=== PATIENT | male | born 1995 | race Caucasian/White ===

== ENCOUNTER 2022-10-04 11:54 | Outpatient (AMB) | payer OTHER, SELFPAY ==
[2022-10-04 11:59] VITALS: BP 124/82; PULSE 77; O2SAT 93; BMI 30.1
--- NOTE | 2022-10-04 11:59 | MHC.PC.OV ---
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 Allergies No Known Allergies Allergy (Verified 10/04/22 12:01) Medication List - Last Reconciled 10/04/22 by Torsten Flores MD No Known Home Meds Tobacco use date assessed: 10/04/22 Dental Screening Dental Screen Date: 10/04/22 Did you have a dental visit in the last 12 months?: Yes Did you have a dental problem in the last 6 months where you did not have access to dental care?: No Was dental information given to patient?: No 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 Details New Patient Fx of diabetes 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 on , after injury 2015, but never had MRI Bloating off and on with certain food, if avoid those feel better Alcohol screen school 4, patient tells me that he drinks every day and has been drinking since the age of 14 We talked about the toxic effect of alcohol and I would recommend for him to stop drinking Own omeprazole 20 mg daily due to bloating symptoms in June had chest pain , associated with the left arm throbbing , while he was driving never seek any medical attention it got better on its own EKG was done today which is within normal limit acute findings Labs to be done fasting Return after the labs for follow-up Patient is requesting testosterone level added to his labs [facility] Social History Housing: House Patient Tobacco Use Status: Never used Tobacco e-Cigarette/Vaping Use: Currently Using service: No Current occupational status: employed Cognitive needs: No Hearing needs: No Vision needs: No Questionnaire PHQ-9 Over the last 2 weeks, how often have you been bothered by any of the following problems? 1. Little interest or pleasure in doing things: several days 2. Feeling down, depressed, or hopeless: several days 3. Trouble falling or staying asleep, or sleeping too much: nearly every day 4. Feeling tired or having little energy: several days 5. Poor appetite or overeating: several days 6. Feeling bad about yourself - or that you are a failure or have let yourself or your family down: several days 7. Trouble concentrating on things, such as reading the newspaper or watching television: not at all 8. Moving or speaking so slowly that other people could have noticed. Or the opposite - being so fidgety or restless that you have been moving around a lot more than usual: not at all 9. Thoughts that you would be better off or of hurting yourself in some way: not at all Total score: 8 Depression Screening Interpretation: Negative 81230 - PHQ-9 Billing: Yes Source: Developed by Drs. Noah Campbell, Nanci Pollack, Anjum Sam and colleagues, with an educational betsy from [employer]: turn off the lights. Thrive Questionnaire Date Thrive assessed: 10/04/22 I am a: Patient What is your living situation today?: I have a steady place to live Within the past 12 months, did the food you bought not last and you didn't have the money to get more?: Never true Within the past 12 months, did you worry whether your food would run out before you got money to buy more?: Never true Do you have trouble paying for medicines?: No Do you have trouble getting transportation to medical appointments?: No Do you have trouble paying your heating and electricity bill?: No Do you have trouble taking care of your child, family member or friend?: No Do you have trouble with day-to-day activities such as bathing, preparing meals, shopping, managing finances, etc.?: No Are you currently unemployed and looking for a job?: No Are you interested in more education?: No AUDIT C Alcohol Use Questionnaire (AUDIT-C) 1. How often do you have a drink containing alcohol?: 2-3 times a week 2. How many drinks containing alcohol do you have on a typical day when you are drinking?: 3 or 4 3. How often do you have six or more drinks on one occasion?: Never Total Score: 4 Score Reviewed/Action Taken: Yes ROMI-7 AMB Questionnaire ROMI-7 Date ROMI - 7 assessed: 10/04/22 Feeling nervous, anxious, or on edge: 2 = More than half the days Not being able to stop or control worryin = Several days Worrying too much about different things: 2 = More than half the days Trouble relaxin = More than half the days Being so restless that it is hard to sit still: 3 = Nearly every day Becoming easily annoyed or irritable: 2 = More than half the days Feeling afraid as if something awful might happen: 1 = Several days Total ROMI-7 score (0-4 normal; 5-9 mild; 10-14 moderate; 15-21 severe): 13 Source: Developed by Drs. Noah Campbell, Nanci Pollack, Anjum Sam and colleagues, with an educational betsy from [employer]: turn off the lights. ROMI-7 Assessment Billing ROMI-7 Assessment Tool: ROMI-7 Assessment 43682 Review of Systems Const Denies chills, Denies fever(s) and Denies headache(s) Eyes Denies blurry vision ENT Denies headache(s), Denies nasal discharge, Denies nasal obstruction, Denies odynophagia and Denies sinus pain Card Denies chest pain at rest and Denies chest pain with activity Resp Denies cough and Denies hemoptysis GI Denies diarrhea, Denies odynophagia, Denies vomiting and Denies hematemesis Reports as per HPI Musc Denies abnormal gait Skin/Breast Reports as per HPI Neuro Denies Neuro-related abnormal movements, Denies Abnormal speech present, Denies abnormal gait, Denies headache(s) and Denies Sensory deficit (Neuro) Psych Denies mood swings and Denies paranoia Endo Reports as per HPI Antonio/Lymph Reports as per HPI Aller/Immun Reports as per HPI Physical exam (Primary Care) Vital Signs: Last Vital Signs Pulse 77 10/04/22 11:59 BP 124/82 10/04/22 11:59 Pulse Ox 93 10/04/22 11:59 Oxygen Delivery Method Room Air 10/04/22 11:59 BMI result Body Mass Index 30.1 Tobacco/Smoking Status: Tobacco use Status Tobacco use date assessed 10/04/22 10/04/22 12:01 Patient Tobacco Use Status Never used Tobacco 10/04/22 12:01 e-Cigarette/Vaping Use Currently Using 10/04/22 12:01 PHQ-9: PHQ-9 Score PHQ-9: Total score 8 10/04/22 12:39 Depression Screening Interpretation: Negative Thrive Assessment: Date of Thrive Assessment Date Thrive assessed 10/04/22 10/04/22 12:39 Const General: cooperative, comfortable and no acute distress Orientation/consciousness: patient oriented x3 HENMT Head: Yes normocephalic and Yes atraumatic Eyes General: appearance normal, both eyes and all related structures Pupils: Equal, round and reactive pupils present EOM: EOMs intact bilaterally Neck Neck: Yes supple and No lymphadenopathy Thyroid: Thyroid normal Lymphatic: no lymphadenopathy noted Resp Effort & Inspection: normal respiratory effort and able to speak in complete sentences Auscultation: clear to auscultation bilaterally Cardio Heart sounds: S1 normal heart sound present and S2 normal heart sound present GI Palpation (GI): Soft to palpation and nontender Auscultation: normal bowel sounds General: Yes no CVA tenderness Back/Spine/Pelvis Back: no CVA tenderness Skin General skin exam: elasticity normal and turgor normal Neuro General: patient oriented x3 and gait normal Cranial nerves: Yes Equal, round and reactive pupils present Speech: No Abnormal speech present Sensory Exam: No Sensory deficit (Neuro) Coordination: tandem gait normal and Romberg test negative Extrem General: Yes normal exam except as noted and No edema Assessment and Plan Assessment & Plan (1) Encounter for general adult medical examination with abnormal findings: Code(s): Z00.01 - Encounter for general adult medical examination with abnormal findings (2) BMI 30.0-30.9,adult: Code(s): Z68.30 - Body mass index [BMI] 30.0-30.9, adult (3) Bloating: Code(s): R14.0 - Abdominal distension (gaseous) (4) Family history of diabetes mellitus: Code(s): Z83.3 - Family history of diabetes mellitus (5) Alcoholism: Code(s): F10.20 - Alcohol dependence, uncomplicated (6) Chest pain: Code(s): R07.9 - Chest pain, unspecified (7) Lack of libido: Code(s): F52.0 - Hypoactive sexual desire disorder Plan New Patient Fx of diabetes 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 on , after injury 2015, but never had MRI Bloating off and on with certain food, if avoid those feel better Alcohol screen school 4, patient tells me that he drinks every day and has been drinking since the age of 14 We talked about the toxic effect of alcohol and I would recommend for him to stop drinking Own omeprazole 20 mg daily due to bloating symptoms in June had chest pain , associated with the left arm throbbing , while he was driving never seek any medical attention it got better on its own EKG was done today which is within normal limit acute findings Labs to be done fasting Return after the labs for follow-up Patient is requesting testosterone level added to his labs Orders: Orders Comprehensive [place]. Panel Fast Today R14.0 - Abdominal distension (gaseous), Z00.01 - Encounter for general adult medical examination with abnormal findings, Z68.30 - Body mass index [BMI] 30.0-30.9, adult, Z83.3 - Family history of diabetes mellitus Lipid Panel Today R14.0 - Abdominal distension (gaseous), Z00.01 - Encounter for general adult medical examination with abnormal findings, Z68.30 - Body mass index [BMI] 30.0-30.9, adult, Z83.3 - Family history of diabetes mellitus TSH reflex Free T4 Today R14.0 - Abdominal distension (gaseous), Z00.01 - Encounter for general adult medical examination with abnormal findings, Z68.30 - Body mass index [BMI] 30.0-30.9, adult, Z83.3 - Family history of diabetes mellitus Complete Blood Count Auto Diff Today R14.0 - Abdominal distension (gaseous), Z00.01 - Encounter for general adult medical examination with abnormal findings, Z68.30 - Body mass index [BMI] 30.0-30.9, adult, Z83.3 - Family history of diabetes mellitus Testosterone, Total Today F52.0 - Hypoactive sexual desire disorder, Z00.01 - Encounter for general adult medical examination with abnormal findings Vitamin B12 Today F10.20 - Alcohol dependence, uncomplicated AMB EKG-In Office Today R07.9 - Chest pain, unspecified Coding Level of Care Code New Pt Prev Care 18-39yr([id number] Diagnoses Encounter for general adult medical examination with abnormal findings Z00.01 BMI 30.0-30.9,adult Z68.30 Bloating R14.0 Family history of diabetes mellitus Z83.3 Alcoholism F10.20 Chest pain R07.9 Lack of libido F52.0 Additional Codes ROMI-7 Assessment Billing - ROMI-7 Assessment Tool: ROMI-7 Assessment 43354 ([id number])
== END 2022-10-04 12:46 | disposition home or self-care (01) ==
PROVIDERS: PCP Nurse Practitioner Family; Visit Provider Internal Medicine
DX: Z00.01 Encounter for general adult medical examination with abnormal findings (principal); Z68.30 Body mass index [BMI] 30.0-30.9, adult; Z83.3 Family history of diabetes mellitus; F10.20 Alcohol dependence, uncomplicated; F52.0 Hypoactive sexual desire disorder; R14.0 Abdominal distension (gaseous); R07.9 Chest pain, unspecified
CPT/HCPCS: 99385

== ENCOUNTER 2022-10-06 06:10 | Outpatient (REF) | payer OTHER, SELFPAY ==
[2022-10-06 11:33] LABS: MANUAL DIFF FLAG NO
[2022-10-06 11:55] LABS: Basophils Percent Auto 0.8 % (0-2); Eosinophils Absolute Auto 0.2 X10*3/uL (0.0-0.4); Eosinophils Percent Auto 4.2 % (0-4); Hemoglobin 14.7 g/dl (14.0-18.0); Imm Gran Abs Auto 0.02 X10*3/uL (0.00-0.03); Imm Gran Pct Auto 0.4 % (0.0-0.4); Lymphocytes Absolute Auto 1.9 X10*3/uL (1.2-4.9); Lymphocytes Percent Auto 35.4 % (20-40); Mean Corpuscular HGB Conc 35.9 g/dl (31.0-36.0); Mean Corpuscular Hemoglobin 31.7 pg (27.0-33.0); Mean Corpuscular Volume 88.6 fL (80.0-98.0); Monocytes Absolute Auto 0.5 X10*3/uL (0.1-1.2); Monocytes Percent Auto 9.8 % (2-11); Neutrophils Absolute Auto 2.6 x10*3/uL (2.0-8.3); Neutrophils Percent Auto 49.4 % (45-73); Platelet Count 223 X10*3/uL (160-400); Red Blood Count 4.63 X10*6/uL (4.60-5.80); Red Cell Distribution Width 12.2 % (11.0-16.0); White Blood Count 5.3 X10*3/uL (4.8-10.8)
[2022-10-06 12:35] LABS: Alanine Aminotransferase 54 U/L (0-40); Albumin Level 4.5 g/dL (3.5-5.0); Alkaline Phosphatase 63 U/L (39-117); Anion Gap 13 (12-20); Aspartate Amino Transferase 44 U/L (5-37); Bilirubin Total 0.7 mg/dL (0.0-1.0); Blood Urea Nitrogen 15 mg/dL (9-16); Calcium 9.3 mg/dL (8.4-10.2); Carbon Dioxide 24 mmol/L (22-29); Chloride 107 mmol/L (96-108); Cholesterol 209 mg/dL; Estimated Glomerular Filt Rate > 60; Glucose Fasting 111 mg/dL (60-99); HDL Cholesterol 58 mg/dL; LDL Cholesterol Calculated 113 mg/dl; Potassium 3.9 mmol/L (3.3-5.1); Sodium 140 mmol/L (135-145); Total Protein 7.1 g/dL (6.5-8.0); Triglycerides 194 mg/dL
[2022-10-06 12:49] LABS: TSH reflex Free T4 3.63 uIU/mL (0.32-4.0)
[2022-10-06 12:59] LABS: Vitamin B12 580 pg/mL (200-900)
[2022-10-12 12:12] LABS: Testosterone, Total 343 ng/dL (250-1100)
== END 2022-10-06 06:11 | disposition home or self-care (01) ==
LOC: HO.HMGCLDS 06:10
PROVIDERS: PCP Nurse Practitioner Family; Visit Provider Internal Medicine
DX: Z00.01 Encounter for general adult medical examination with abnormal findings (principal); R14.0 Abdominal distension (gaseous); F52.0 Hypoactive sexual desire disorder; F10.20 Alcohol dependence, uncomplicated; Z83.3 Family history of diabetes mellitus
CPT/HCPCS: 36415; 80053; 80061; 82607; 84403; 84443; 85025

== ENCOUNTER 2022-10-18 10:17 | Outpatient (AMB) | payer OTHER, SELFPAY ==
--- NOTE | 2022-10-18 10:18 | A.OFFPC_ITS ---
Vital Signs 10/18/22 10:19 Height 5 ft 5 in Weight 185 lb 6 oz BMI 30.8 BP 148/80 H Blood Pressure Location Lt brachial Position Sitting Pulse 74 Pulse Source Pulse Oximeter Pulse Oximetry (%) 95 Oxygen Delivery Method Room Air Intake Visit Reasons: follow up Allergies No Known Allergies Allergy (Verified 10/18/22 10:18) Medication List - Last Reconciled 10/18/22 by Torsten Flores MD No Known Home Meds Tobacco use date assessed: 10/18/22 Dental Screening Dental Screen Date: 10/18/22 Did you have a dental visit in the last 12 months?: Yes Did you have a dental problem in the last 6 months where you did not have access to dental care?: No Was dental information given to patient?: No HPI follow up HPI Details Patient is 27-year-old gentleman came in today for follow-up appointment and to go over his labs He tells me that he has cut down on his alcohol consumption LFT elevation: Patient's AST and ALT is slightly elevated at 44 and 55, discussed with the patient I would recommend for him to stop drinking altogether. We will continue to monitor. His testosterone level came back at 343 which is low normal, however patient is complaining of feeling tired and lack of libido he is requesting a urology referral. Blood pressure is elevated today it was within normal limit early this month. Patient is pre diabetic with fasting sugar of 111 however his hemoglobin A1c was 5.0 He will repeat labs again in 3 months Follow-up 4 months [facility] Social History Housing: House Patient Tobacco Use Status: Never used Tobacco e-Cigarette/Vaping Use: Currently Using service: No Current occupational status: employed Cognitive needs: No Hearing needs: No Vision needs: No Questionnaire PHQ-9 Over the last 2 weeks, how often have you been bothered by any of the following problems? 1. Little interest or pleasure in doing things: several days 2. Feeling down, depressed, or hopeless: not at all 3. Trouble falling or staying asleep, or sleeping too much: nearly every day 4. Feeling tired or having little energy: more than half the days 5. Poor appetite or overeating: several days 6. Feeling bad about yourself - or that you are a failure or have let yourself or your family down: several days 7. Trouble concentrating on things, such as reading the newspaper or watching television: not at all 8. Moving or speaking so slowly that other people could have noticed. Or the opposite - being so fidgety or restless that you have been moving around a lot more than usual: not at all 9. Thoughts that you would be better off or of hurting yourself in some way: not at all Total score: 8 Depression Screening Interpretation: Negative [id number] - PHQ-9 Billing: Yes Source: Developed by Drs. Noah Campbell, Nanci Pollack, Anjum Sam and colleagues, with an educational betsy from [employer]. Thrive Questionnaire Date Thrive assessed: 10/18/22 I am a: Patient What is your living situation today?: I have a steady place to live Within the past 12 months, did the food you bought not last and you didn't have the money to get more?: Never true Within the past 12 months, did you worry whether your food would run out before you got money to buy more?: Never true Do you have trouble paying for medicines?: No Do you have trouble getting transportation to medical appointments?: No Do you have trouble paying your heating and electricity bill?: No Do you have trouble taking care of your child, family member or friend?: No Do you have trouble with day-to-day activities such as bathing, preparing meals, shopping, managing finances, etc.?: No Are you currently unemployed and looking for a job?: No Are you interested in more education?: No AUDIT C Alcohol Use Questionnaire (AUDIT-C) 1. How often do you have a drink containing alcohol?: Never 3. How often do you have six or more drinks on one occasion?: Never Total Score: 0 Score Reviewed/Action Taken: Yes ROMI-7 AMB Questionnaire ROMI-7 Date ROMI - 7 assessed: 10/18/22 Feeling nervous, anxious, or on edge: 2 = More than half the days Not being able to stop or control worryin = More than half the days Worrying too much about different things: 2 = More than half the days Trouble relaxin = More than half the days Being so restless that it is hard to sit still: 2 = More than half the days Becoming easily annoyed or irritable: 2 = More than half the days Feeling afraid as if something awful might happen: 2 = More than half the days Total ROMI-7 score (0-4 normal; 5-9 mild; 10-14 moderate; 15-21 severe): 14 Source: Developed by Drs. Noah Campbell, Nanci Pollack, Anjum Sam and colleagues, with an educational betsy from [employer]. ROMI-7 Assessment Billing ROMI-7 Assessment Tool: ROMI-7 Assessment 36796 Review of Systems Const Denies chills and Denies fever(s) ENT Denies epistaxis and Denies nasal discharge Card Denies chest pain Resp Denies chest congestion, Denies cough and Denies hemoptysis GI Denies diarrhea and Denies nausea Skin/Breast Denies rash Neuro Reports no additional complaints Psych Reports no additional complaints Endo Reports no additional complaints Physical exam (Primary Care) Vital Signs: Last Vital Signs Pulse 74 10/18/22 10:19 BP 148/80 H 10/18/22 10:19 Pulse Ox 95 10/18/22 10:19 Oxygen Delivery Method Room Air 10/18/22 10:19 BMI result Body Mass Index 30.8 Tobacco/Smoking Status: Tobacco use Status Tobacco use date assessed 10/18/22 10/18/22 10:20 Patient Tobacco Use Status Never used Tobacco 10/18/22 10:20 e-Cigarette/Vaping Use Currently Using 10/18/22 10:20 PHQ-9: PHQ-9 Score PHQ-9: Total score 8 10/18/22 10:48 Depression Screening Interpretation: Negative Thrive Assessment: Date of Thrive Assessment Date Thrive assessed 10/18/22 10/18/22 10:45 Const General: cooperative, comfortable and no acute distress Orientation/consciousness: patient oriented x3 HENMT Head: Yes normocephalic Eyes General: appearance normal, both eyes and all related structures Neck Neck: Yes supple Resp Effort & Inspection: normal respiratory effort, no cough and no stridor Cardio Rhythm: regular rhythm Heart sounds: S1 normal heart sound present and S2 normal heart sound present Skin General skin exam: turgor normal Neuro General: patient oriented x3, tone normal and moves all extremities Extrem Right lower extremity: no edema Left lower extremity: no edema Results AMB Hemoglobin A1c AMB Hemoglobin A1c 5.0 % Last Edit by ELIESER Vargas on 10/18/22 10 :48 Results Reviewed Results Reviewed: Laboratory Last Values Hgb A1c (Clinic) 5.0 % (4.0-6.0) 10/18/22 10:47 Laboratory Tests 10/06/22 10/06/22 06:40 06:40 Fasting Glucose 111 H AST 44 H ALT 54 H LDL Cholesterol, Calc 113 TSH 3.63 Total Testosterone 343 Assessment and Plan Assessment & Plan (1) Impaired fasting blood sugar: Code(s): R73.01 - Impaired fasting glucose (2) LFT elevation: Code(s): R79.89 - Other specified abnormal findings of blood chemistry (3) BMI 30.0-30.9,adult: Code(s): Z68.30 - Body mass index [BMI] 30.0-30.9, adult (4) Lack of libido: Code(s): F52.0 - Hypoactive sexual desire disorder (5) Tired: Code(s): R53.83 - Other fatigue Plan Patient is 27-year-old gentleman came in today for follow-up appointment and to go over his labs He tells me that he has cut down on his alcohol consumption LFT elevation: Patient's AST and ALT is slightly elevated at 44 and 55, discussed with the patient I would recommend for him to stop drinking altogether. We will continue to monitor. His testosterone level came back at 343 which is low normal, however patient is complaining of feeling tired and lack of libido he is requesting a urology referral. Blood pressure is elevated today it was within normal limit early this month. Patient is pre diabetic with fasting sugar of 111 however his hemoglobin A1c was 5.0 He will repeat labs again in 3 months Follow-up 4 months Orders: Orders Comprehensive [place]. Panel Fast 3 Months R73.01 - Impaired fasting glucose, R79.89 - Other specified abnormal findings of blood chemistry, Z68.30 - Body mass index [BMI] 30.0-30.9, adult Hemoglobin A1c 3 Months R73.01 - Impaired fasting glucose, R79.89 - Other specified abnormal findings of blood chemistry, Z68.30 - Body mass index [BMI] 30.0-30.9, adult AMB Hemoglobin A1c Today Z13.9 - Encounter for screening, unspecified Coding Level of Care Code Est Pt Level 4 (97272) Diagnoses Impaired fasting blood sugar R73.01 LFT elevation R79.89 BMI 30.0-30.9,adult Z68.30 Lack of libido F52.0 Tired R53.83 Additional Codes ROMI-7 Assessment Billing - ROMI-7 Assessment Tool: ROMI-7 Assessment 00173 ([id number])
[2022-10-18 10:19] VITALS: BP 148/80; PULSE 74; O2SAT 95; BMI 30.8
== END 2022-10-18 11:03 | disposition home or self-care (01) ==
PROVIDERS: PCP Nurse Practitioner Family; Visit Provider Internal Medicine
DX: R73.01 Impaired fasting glucose (principal); Z68.30 Body mass index [BMI] 30.0-30.9, adult; F52.0 Hypoactive sexual desire disorder; R53.83 Other fatigue
CPT/HCPCS: 83036; 99214

== ENCOUNTER 2022-12-12 11:44 | Outpatient (REF) | payer OTHER, SELFPAY ==
[2022-12-13 07:59] LABS: HIV AB/AG Nonreactive (Nonreactive); HIV Num 1 0.05 S/CO (0.00-0.99)
== END 2022-12-12 11:45 | disposition home or self-care (01) ==
LOC: HO.HMGCLDS 11:44
PROVIDERS: PCP Internal Medicine; Visit Provider Internal Medicine
DX: Z11.4 Encounter for screening for human immunodeficiency virus [HIV] (principal)
CPT/HCPCS: 36415; 87389

== ENCOUNTER 2023-01-04 09:05 | Outpatient (REF) | payer OTHER, SELFPAY ==
[2023-01-04 11:43] LABS: Estimated Average Glucose 82 mg/dL; Hemoglobin A1c % 4.5 % (<6.0)
[2023-01-04 11:52] LABS: Alanine Aminotransferase 76 U/L (0-40); Albumin Level 4.9 g/dL (3.5-5.0); Alkaline Phosphatase 59 U/L (39-117); Anion Gap 15 (12-20); Aspartate Amino Transferase 57 U/L (5-37); Bilirubin Total 0.6 mg/dL (0.0-1.0); Blood Urea Nitrogen 13 mg/dL (9-16); Calcium 9.5 mg/dL (8.4-10.2); Carbon Dioxide 24 mmol/L (22-29); Chloride 108 mmol/L (96-108); Estimated Glomerular Filt Rate > 60; Glucose Fasting 81 mg/dL (60-99); Potassium 4.3 mmol/L (3.3-5.1); Sodium 143 mmol/L (135-145); Total Protein 7.6 g/dL (6.5-8.0)
== END 2023-01-04 09:06 | disposition home or self-care (01) ==
LOC: HO.HMGCLDS 09:05
PROVIDERS: PCP Internal Medicine; Visit Provider Internal Medicine
DX: R79.89 Other specified abnormal findings of blood chemistry (principal); R73.01 Impaired fasting glucose
CPT/HCPCS: 36415; 80053; 83036

== ENCOUNTER 2023-01-04 09:26 | Outpatient (AMB) | payer OTHER, SELFPAY ==
[2023-01-04 09:33] VITALS: BP 140/98; PULSE 79; O2SAT 96; BMI 28.7
--- NOTE | 2023-01-04 09:33 | MHC.PC.OV ---
Vital Signs 01/04/23 09:33 Height 5 ft 5 in Weight 172 lb 8 oz BMI 28.7 BP 140/98 H Blood Pressure Location Rt brachial Position Sitting Pulse 79 Pulse Source Pulse Oximeter Pulse Oximetry (%) 96 Oxygen Delivery Method Room Air Intake Visit Reasons: Therapist Referral-Life Issues Allergies No Known Allergies Allergy (Verified 01/04/23 09:33) Tobacco use date assessed: 01/04/23 Dental Screening Dental Screen Date: 01/04/23 Did you have a dental visit in the last 12 months?: Yes Did you have a dental problem in the last 6 months where you did not have access to dental care?: No Was dental information given to patient?: Patient has dentist HPI Therapist Referral-Life Issues HPI Details Patient is 27-year-old gentlemen who is dealing with lot of stress in his life currently He says that work related stress and also to domestic stress He has 3 children 4-year-old son and 2 daughters [id number] Patient is in a process of getting divorce He is interested in starting therapy and counseling But does not want to take any medications He did some lifestyle changes has lost some weight And stopped drinking alcohol He says that 1 of his friend who knows him well has told him that he is bipolar Because he he has experience with a bipolar sister. Patient himself is not sure about that. He had labs done today to go over his liver enzymes Report is not available at this time He has a follow-up appointment in January. [facility] Social History Housing: House Patient Tobacco Use Status: Never used Tobacco e-Cigarette/Vaping Use: Currently Using service: No Current occupational status: employed Cognitive needs: No Hearing needs: No Vision needs: No Questionnaire PHQ-9 Over the last 2 weeks, how often have you been bothered by any of the following problems? 1. Little interest or pleasure in doing things: several days 2. Feeling down, depressed, or hopeless: several days 3. Trouble falling or staying asleep, or sleeping too much: nearly every day 4. Feeling tired or having little energy: more than half the days 5. Poor appetite or overeating: several days 6. Feeling bad about yourself - or that you are a failure or have let yourself or your family down: more than half the days 7. Trouble concentrating on things, such as reading the newspaper or watching television: more than half the days 8. Moving or speaking so slowly that other people could have noticed. Or the opposite - being so fidgety or restless that you have been moving around a lot more than usual: nearly every day 9. Thoughts that you would be better off or of hurting yourself in some way: not at all Total score: 15 Depression Screening Interpretation: Positive Depression Screening Follow-up: Community Mental Health Worker F/U and Declines treatment Depression Screening Done: Yes 24194 - PHQ-9 Billing: Yes Source: Developed by Drs. Noah Campbell, Nanci Pollack, Anjum Sam and colleagues, with an educational betsy from [employer]. Thrive Questionnaire Date Thrive assessed: 10/18/22 AUDIT C Alcohol Use Questionnaire (AUDIT-C) 1. How often do you have a drink containing alcohol?: Never 3. How often do you have six or more drinks on one occasion?: Never Total Score: 0 Score Reviewed/Action Taken: Yes ROMI-7 AMB Questionnaire ROMI-7 Date ROMI - 7 assessed: 10/18/22 Source: Developed by Drs. Noah Campbell, Nanci Pollack, Anjum Sam and colleagues, with an educational betsy from [employer]. Review of Systems Const Denies chills and Denies fever(s) ENT Denies epistaxis and Denies nasal discharge Card Denies chest pain Resp Denies chest congestion, Denies cough and Denies hemoptysis GI Denies diarrhea and Denies nausea Skin/Breast Denies rash Neuro Reports no additional complaints Psych Reports no additional complaints Endo Reports no additional complaints Physical exam (Primary Care) Vital Signs: Last Vital Signs Pulse 79 01/04/23 09:33 BP 140/98 H 01/04/23 09:33 Pulse Ox 96 01/04/23 09:33 Oxygen Delivery Method Room Air 01/04/23 09:33 BMI result Body Mass Index 28.7 Tobacco/Smoking Status: Tobacco use Status Tobacco use date assessed 01/04/23 01/04/23 09:35 Patient Tobacco Use Status Never used Tobacco 01/04/23 09:35 e-Cigarette/Vaping Use Currently Using 01/04/23 09:35 PHQ-9: PHQ-9 Score PHQ-9: Total score 15 01/04/23 10:12 Depression Screening Interpretation: Positive Depression Screening Follow-up: Community Mental Health Worker F/U and Declines treatment Thrive Assessment: Date of Thrive Assessment Date Thrive assessed 10/18/22 01/04/23 09:35 Const General: cooperative, comfortable and no acute distress Orientation/consciousness: patient oriented x3 HENMT Head: Yes normocephalic Eyes General: appearance normal, both eyes and all related structures Neck Neck: Yes supple Resp Effort & Inspection: normal respiratory effort, no cough and no stridor Skin General skin exam: turgor normal Neuro General: patient oriented x3, tone normal and moves all extremities Extrem Right lower extremity: no edema Left lower extremity: no edema Assessment and Plan Assessment & Plan (1) Depression, major, single episode, moderate: Code(s): F32.1 - Major depressive disorder, single episode, moderate (2) LFT elevation: Code(s): R79.89 - Other specified abnormal findings of blood chemistry Plan Patient is 27-year-old gentlemen who is dealing with lot of stress in his life currently He says that work related stress and also to domestic stress He has 3 children 4-year-old son and 2 daughters [id number] Patient is in a process of getting divorce He is interested in starting therapy and counseling But does not want to take any medications He did some lifestyle changes has lost some weight And stopped drinking alcohol He says that 1 of his friend who knows him well has told him that he is bipolar Because he he has experience with a bipolar sister. Patient himself is not sure about that. He had labs done today to go over his liver enzymes Report is not available at this time He has a follow-up appointment in January. Coding Level of Care Code Est Pt Level 3 (40692) Diagnoses Depression, major, single episode, moderate F32.1 LFT elevation R79.89
== END 2023-01-04 10:44 | disposition home or self-care (01) ==
PROVIDERS: PCP Internal Medicine; Visit Provider Internal Medicine
DX: F32.1 Major depressive disorder, single episode, moderate (principal); R79.89 Other specified abnormal findings of blood chemistry
CPT/HCPCS: 99213

== ENCOUNTER 2023-01-17 12:42 | Outpatient (AMB) | payer OTHER, SELFPAY ==
--- NOTE | 2023-01-17 12:40 | MHC.PC.OV ---
Vital Signs 01/17/23 12:40 Height 5 ft 5 in Intake Visit Reasons: Discuss lab results/[phone] Allergies No Known Allergies Allergy (Verified 01/17/23 12:41) Medication List - Last Reconciled 01/17/23 by Torsten Flores MD No Known Home Meds Tobacco use date assessed: 01/17/23 Dental Screening Dental Screen Date: 01/17/23 Did you have a dental visit in the last 12 months?: Yes Did you have a dental problem in the last 6 months where you did not have access to dental care?: No Was dental information given to patient?: Patient has dentist HPI Discuss lab results/[phone] HPI Details This is a telemedicine conference Patient had labs recently, and wanted to review the reports His liver enzymes has gotten slightly worse than before, even though he has stopped drinking alcohol and has modified his diet Fasting sugar is within normal limit now I have ordered ultrasound of liver to further evaluate. [facility] Housing: House Patient Tobacco Use Status: Never used Tobacco e-Cigarette/Vaping Use: Currently Using service: No Current occupational status: employed Cognitive needs: No Hearing needs: No Vision needs: No Questionnaire Thrive Questionnaire Date Thrive assessed: 10/18/22 AUDIT C Alcohol Use Questionnaire (AUDIT-C) 1. How often do you have a drink containing alcohol?: Never 3. How often do you have six or more drinks on one occasion?: Never Total Score: 0 Score Reviewed/Action Taken: Yes ROMI-7 AMB Questionnaire ROMI-7 Date ROMI - 7 assessed: 10/18/22 Source: Developed by Drs. Noah Campbell, Nanci Pollack, Anjum Sam and colleagues, with an educational betsy from [employer]. Review of Systems Const Denies chills and Denies fever(s) ENT Denies epistaxis and Denies nasal discharge Card Denies chest pain Resp Denies chest congestion, Denies cough and Denies hemoptysis GI Denies diarrhea and Denies nausea Skin/Breast Denies rash Neuro Reports no additional complaints Psych Reports no additional complaints Endo Reports no additional complaints Physical exam (Primary Care) Tobacco/Smoking Status: Tobacco use Status Tobacco use date assessed 01/17/23 01/17/23 12:41 Patient Tobacco Use Status Never used Tobacco 01/17/23 12:40 e-Cigarette/Vaping Use Currently Using 01/17/23 12:40 Thrive Assessment: Date of Thrive Assessment Date Thrive assessed 10/18/22 01/17/23 12:40 Telehealth Telehealth Location of provider rendering services: practice address Location of patient: address on file Patient Identification confirmed using: Name, : Yes Telehealth method: voice only Patient verbally consented to treatment: Yes Patient verbally consented to billing insurance company: Yes Patient informed of any privacy concerns related to visit: Yes Minutes spent on Phone/Video with Pt.: 14 Assessment and Plan Assessment & Plan (1) LFT elevation: Code(s): R79.89 - Other specified abnormal findings of blood chemistry Plan This is a telemedicine conference Patient had labs recently, and wanted to review the reports His liver enzymes has gotten slightly worse than before, even though he has stopped drinking alcohol and has modified his diet Fasting sugar is within normal limit now I have ordered ultrasound of liver to further evaluate. Orders: Orders US abdomen complete Today R79.89 - Other specified abnormal findings of blood chemistry Coding Level of Care Code Tele Est Pt Level 3 (39042) Diagnoses LFT elevation R79.89
== END 2023-01-17 15:25 | disposition home or self-care (01) ==
LOC: HO.HMGC 12:42
PROVIDERS: PCP Internal Medicine; Visit Provider Internal Medicine
DX: R79.89 Other specified abnormal findings of blood chemistry (principal)
CPT/HCPCS: 99213

== ENCOUNTER 2023-02-02 09:04 | Outpatient (REF) | payer OTHER, SELFPAY ==
--- NOTE | ~2023-02-02 | US_ITS ---
EXAMINATION: US ABDOMEN COMPLETE CLINICAL INFORMATION: Other specified abnormal findings of blood chemistry. COMPARISON: None available. TECHNIQUE: Real-time imaging of the abdominal viscera. FINDINGS: PANCREAS: The pancreas appears unremarkable, without masses or ductal dilatation, with the exception of the tail which is obscured by bowel gas. ABDOMINAL AORTA: The proximal, mid, and distal segments are normal in caliber. INFERIOR VENA CAVA: Visualized portions are normal. LIVER: The liver is enlarged measuring at least 18 cm in cephalocaudad dimension. The liver contour is normal. There is diffuse increased liver parenchymal echogenicity, consistent with hepatic steatosis. No focal hepatic lesion. There is no intrahepatic biliary duct dilatation seen. GALLBLADDER: The gallbladder is physiologically distended without evidence of stones, sludge, polyps, wall thickening or pericholecystic fluid. COMMON BILE DUCT: Normal in caliber measuring 0.20 cm in diameter. RIGHT KIDNEY: Normal. No hydronephrosis. No renal calculi or focal parenchymal lesions. The kidney measures 11.0 cm in maximum dimension. LEFT KIDNEY: Normal. No hydronephrosis. No renal calculi or focal parenchymal lesions. The kidney measures 11.6 cm in maximum dimension. SPLEEN: Normal. The spleen measures 12.8 cm in maximum dimension. FREE FLUID: None. US/US abdomen complete IMPRESSION: Enlarged fatty liver.
== END 2023-02-02 09:05 | disposition home or self-care (01) ==
LOC: HO.HMGCX 09:04
PROVIDERS: PCP Internal Medicine; Visit Provider Internal Medicine
DX: R79.89 Other specified abnormal findings of blood chemistry (principal)
CPT/HCPCS: 76700

== ENCOUNTER 2023-03-31 15:23 | Outpatient (AMB) | payer OTHER, SELFPAY ==
[2023-03-31 15:27] VITALS: BP 150/89; PULSE 74; BMI 27.9
--- NOTE | 2023-03-31 15:27 | MHC.OFFVIS ---
Intake Vital Signs 03/31/23 15:27 Height 5 ft 5 in Weight 167 lb 8.821 oz BMI 27.9 BP 150/89 H Blood Pressure Location Lt brachial Position Sitting Pulse 74 Intake Visit Reasons: Fatty Liver Intake Note: Patient presents to in office visit today as a new patient for fatty liver. CC: Patient c/o constipation, diarrhea, a lot of trouble eating lately, and nausea. He states he feels a lot of acid going through his throat. He states it was worst last year around July or September as he was having a lot of abdominal pain. Pt states symptoms come and go. Allergies No Known Allergies Allergy (Verified 03/31/23 15:36) HPI Fatty Liver HPI Details 27-year-old male with no significant past medical history except for ETOH use since age 14 is here today for initial consultation. Patient was send to evaluate his liver. His she of transaminitis in the past. Patient reports postprandial abdominal bloating and epigastric pain. Patient denies any nausea or vomiting. Reports dyspepsia severe burning in the chest after eating and at night time. Patient states that it feels like the acid is going up his throat. Patient reports to have occasional loose stools then constipation. Patient denies any melena, hematochezia, unintentional weight loss or ribbon like stools. Patient reports that he drinks hard liquor every day. [facility] Family History (Updated 03/31/23 @ 15:38 by ELIESER Pacheco) Maternal Grandmother Brain neoplasm malignant Mother H/O thyroidectomy Social History Housing: House Alcohol intake: current Alcohol intake frequency: 3 or more drinks per day Alcohol type: hard liquor Patient Tobacco Use Status: Never used Tobacco e-Cigarette/Vaping Use: Former Use service: No Current occupational status: employed Cognitive needs: No Hearing needs: No Vision needs: No Review of Systems Const Denies weight gain and Denies weight loss ENT Reports no additional complaints, Denies dysphagia and Denies odynophagia Card Reports no additional complaints Resp Reports no additional complaints GI Reports abdominal pain (Epigastric), Denies belching, Denies melena, Reports bloating, Reports constipation, Denies dysphagia, Denies excessive flatus, Reports dyspepsia, Reports heartburn, Denies diarrhea, Reports loose stools, Reports nausea (Occasional), Denies odynophagia and Denies vomiting Reports no additional complaints Musc Reports no additional complaints Neuro Reports no additional complaints Psych Reports no additional complaints Endo Reports no additional complaints Physical Exam Vital Signs: Last Vital Signs Pulse 74 03/31/23 15:27 BP 150/89 H 03/31/23 15:27 BMI result Body Mass Index 27.9 Const General: healthy appearing, no acute distress and well developed Nutritional Appearance: well nourished Orientation/consciousness: patient oriented x3 Resp Effort & Inspection: normal respiratory effort, able to speak in complete sentences, no tracheal deviation and symmetric chest movement Auscultation: clear to auscultation bilaterally Cardio Rate: regular rate GI Inspection: Yes normal to inspection and No distended Palpation (GI): Soft to palpation, not firm, nontender and No hepatosplenomegaly present Auscultation: normal bowel sounds General: Yes no CVA tenderness Back/Spine/Pelvis Back: no CVA tenderness Skin General skin exam: elasticity normal, turgor normal and dry skin Neuro General: patient oriented x3 Psych Appearance: grossly normal Mental Status: mental status grossly normal Results Reviewed Results Reviewed: ABDOMINAL ULTRASOUND JANUARY 2023 FINDINGS: PANCREAS: The pancreas appears unremarkable, without masses or ductal dilatation, with the exception of the tail which is obscured by bowel gas. ABDOMINAL AORTA: The proximal, mid, and distal segments are normal in caliber. INFERIOR VENA CAVA: Visualized portions are normal. LIVER: The liver is enlarged measuring at least 18 cm in cephalocaudad dimension. The liver contour is normal. There is diffuse increased liver parenchymal echogenicity, consistent with hepatic steatosis. No focal hepatic lesion. There is no intrahepatic biliary duct dilatation seen. GALLBLADDER: The gallbladder is physiologically distended without evidence of stones, sludge, polyps, wall thickening or pericholecystic fluid. COMMON BILE DUCT: Normal in caliber measuring 0.20 cm in diameter. RIGHT KIDNEY: Normal. No hydronephrosis. No renal calculi or focal parenchymal lesions. The kidney measures 11.0 cm in maximum dimension. LEFT KIDNEY: Normal. No hydronephrosis. No renal calculi or focal parenchymal lesions. The kidney measures 11.6 cm in maximum dimension. SPLEEN: Normal. The spleen measures 12.8 cm in maximum dimension. FREE FLUID: None. US/US abdomen complete IMPRESSION: Enlarged fatty liver. Assessment & Plan Assessment & Plan (1) Fatty liver: Code(s): K76.0 - Fatty (change of) liver, not elsewhere classified (2) LFT elevation: Code(s): R79.89 - Other specified abnormal findings of blood chemistry (3) Alcoholism: Code(s): F10.20 - Alcohol dependence, uncomplicated (4) Bloating: Code(s): R14.0 - Abdominal distension (gaseous) (5) GERD (gastroesophageal reflux disease): Code(s): K21.9 - Gastro-esophageal reflux disease without esophagitis Qualifiers: Esophagitis presence: esophagitis presence not specified Qualified Code(s): K21.9 - Gastro-esophageal reflux disease without esophagitis (6) Postprandial epigastric pain: Code(s): R10.13 - Epigastric pain (7) Dyspepsia: Code(s): R10.13 - Epigastric pain Plan Will check for celiac, patient can start taking pantoprazole in the morning and famotidine at bedtime. Avoid dietary triggers and avoid drinking alcohol. Most likely transaminitis related to alcohol. Ultrasound done in January showed increased hepatic echogenicity suggesting steatosis most likely alcoholic. However we will rule out autoimmune disorders. Will check transglutaminase to rule out celiac, H pylori pancreatic insufficiency, IBD. Patient will return in 5 weeks, sooner on as needed basis. Patient is agreeable to this plan and verbalizes understanding of instructions. He was given the opportunity to ask questions and all questions answered. Thank you for allowing me to participate in his care Orders: Orders Hepatitis A,B,C Profile 04/03/23 R7.89 - Other specified abnormal findings of blood chemistry HIV Ab/Ag 04/03/23 R7.89 - Other specified abnormal findings of blood chemistry Prothrombin Time INR 04/03/23 R74.8 - Abnormal levels of other serum enzymes C Reactive Protein 04/03/23 K58.9 - Irritable bowel syndrome without diarrhea Smooth Muscle Antibody 04/03/23 R7.89 - Other specified abnormal findings of blood chemistry Transglutaminase Ab IgG 04/03/23 R10.9 - Unspecified abdominal pain Mitochondrial Antibody 04/03/23 R7.89 - Other specified abnormal findings of blood chemistry Ferritin 04/03/23 R74.8 - Abnormal levels of other serum enzymes H Pylori Breath Test 03/31/23 Liver Fibrosis Pnl 04/03/23 R74.8 - Abnormal levels of other serum enzymes Ceruloplasmin 04/03/23 R79.89 - Other specified abnormal findings of blood chemistry Alpha Fetoprotein 04/03/23 R79.89 - Other specified abnormal findings of blood chemistry Transglutaminase IgA 04/03/23 R10.9 - Unspecified abdominal pain Vitamin D 25-OH (D2 and D3) 04/03/23 E55.9 - Vitamin D deficiency, unspecified Vitamin B12 and Folate 04/03/23 R19.7 - Diarrhea, unspecified TSH reflex Free T4 04/03/23 K59.00 - Constipation, unspecified Gamma Glutamyl Transpeptidase 04/03/23 R74.8 - Abnormal levels of other serum enzymes Pancreatic Elastase-1 03/31/23 R10.9 - Unspecified abdominal pain Calprotectin, Fecal 03/31/23 R15.9 - Full incontinence of feces Medications: New famotidine 40 mg PO BEDTIME 30 tabs 3RF K21.9 - Gastro-esophageal reflux disease without esophagitis pantoprazole take one tablet half an hour before breakfast 40 mg PO DAILY 30 tabs 2RF K21.9 - Gastro-esophageal reflux disease without esophagitis Coding Level of Care Code New Pt Level 4 (45698) Diagnoses Fatty liver K76.0 LFT elevation R79.89 Alcoholism F10.20 Bloating R14.0 Gastroesophageal reflux disease, unspecified whether esophagitis present K21.9 Esophagitis presence: esophagitis presence not specified Postprandial epigastric pain R10.13 Dyspepsia R10.13 Time Spent (min) 45 Comment 30 minutes spent with patient and additional 15 minutes spent reviewing his records
== END 2023-03-31 16:26 | disposition home or self-care (01) ==
PROVIDERS: PCP Internal Medicine; Visit Provider Nurse Practitioner Family
DX: K76.0 Fatty (change of) liver, not elsewhere classified (principal); R79.89 Other specified abnormal findings of blood chemistry; F10.20 Alcohol dependence, uncomplicated; R14.0 Abdominal distension (gaseous); K21.9 Gastro-esophageal reflux disease without esophagitis; R10.13 Epigastric pain
CPT/HCPCS: 99204

== ENCOUNTER 2023-03-31 15:23 | Outpatient (REF) | payer OTHER, SELFPAY ==
[2023-04-01 13:31] LABS: H Pylori Breath Test Negative (Negative)
== END 2023-03-31 15:24 | disposition home or self-care (01) ==
LOC: HO.LNP 15:23
PROVIDERS: PCP Internal Medicine; Visit Provider Nurse Practitioner Family
DX: Z11.2 Encounter for screening for other bacterial diseases (principal)
CPT/HCPCS: 83013; 99202

== ENCOUNTER 2023-04-03 09:32 | Outpatient (REF) | payer OTHER, SELFPAY ==
[2023-04-03 13:35] LABS: INTERNATIONAL NORM RATIO 0.9 (0.9-1.1); Prothrombin Time 10.8 SEC (11.1-13.3)
[2023-04-03 13:57] LABS: C Reactive Protein 0.11 mg/dL (< or = 0.50)
[2023-04-03 14:17] LABS: Folate 14.4 ng/mL (> or = 4.0); Vitamin B12 959 pg/mL (200-900)
[2023-04-03 14:22] LABS: Ferritin 510 ng/mL (20-250); Gamma Glutamyl Transpeptidase 133 U/L (11-51); TSH reflex Free T4 1.36 uIU/mL (0.32-4.0)
[2023-04-04 07:55] LABS: HBS Num1 5.76 mIU/mL (0-7.99); HBc Num1 0.29 S/CO (0.00-0.79); HIV AB/AG Nonreactive (Nonreactive); HIV Num 1 0.05 S/CO (0.00-0.99); Hepatitis A Antibody IgM 0.17 Index (0-0.79); Hepatitis B Core Antibody Nonreactive (Nonreactive); Hepatitis B Surface Antigen Negative (Negative); ~HepC Num1 0.08 S/CO (0.00-0.79); ~Hepatitis A Antibody IgM Nonreactive (Nonreactive); ~Hepatitis B Surface Antibody NONREACTIVE (Nonreactive); ~Hepatitis C Antibody Nonreactive (Nonreactive)
[2023-04-04 13:54] LABS: Alpha Fetoprotein 2.5 ng/mL (<6.1)
[2023-04-04 15:33] LABS: Ceruloplasmin 26 mg/dL (18-36)
[2023-04-04 19:49] LABS: Transglutaminase Ab IgG <1.0 U/mL; Transglutaminase IgA <1.0 U/mL
[2023-04-07 13:18] LABS: Smooth Muscle Antibody <20 U (<20)
[2023-04-07 14:53] LABS: FIB-ALT 49 U/L (9-46); FIB-Alpha-2-Macroglobulin 133 mg/dL (106-279); FIB-Apolipoprotein A1 168 mg/dL (94-176); FIB-GGT 102 U/L (3-70); FIB-Haptoglobin 147 mg/dL (43-212); FIB-Total Bilirubin 0.5 mg/dL (0.2-1.2); Liver Fibrosis Score 0.08; Liver Fibrosis Stage F0; Nec Inflam Act Grade A0-A1; Nec Inflam Act Score 0.22
[2023-04-07 15:28] LABS: Vitamin D 25-OH, D2 <4 ng/mL; Vitamin D 25-OH, D3 36 ng/mL; Vitamin D 25-OH, Total 36 ng/mL (30-100)
[2023-04-07 15:34] LABS: Mitochondrial Antibodies NEGATIVE (NEGATIVE)
== END 2023-04-03 09:33 | disposition home or self-care (01) ==
LOC: HO.HMGCLDS 09:32
PROVIDERS: PCP Internal Medicine; Visit Provider Nurse Practitioner Family
DX: E55.9 Vitamin D deficiency, unspecified (principal); R10.9 Unspecified abdominal pain; R79.89 Other specified abnormal findings of blood chemistry; R74.8 Abnormal levels of other serum enzymes; K58.1 Irritable bowel syndrome with constipation; K58.0 Irritable bowel syndrome with diarrhea
CPT/HCPCS: 36415; 81596; 82105; 82306; 82390; 82607; 82728; 82746; 82977; 84443; 85610; 86015; 86140; 86364; 86381; 86704; 86706; 86709; 86803; 87340; 87389

== ENCOUNTER 2023-05-02 12:00 | Outpatient (REF) | payer OTHER, SELFPAY ==
[2023-05-10 02:45] LABS: Calprotectin, Fecal 22 mcg/g
[2023-05-15 23:09] LABS: Pancreatic Elastase-1 >500 mcg/g
== END 2023-05-02 12:01 | disposition home or self-care (01) ==
LOC: HO.HMGCLNP 12:00
PROVIDERS: PCP Internal Medicine; Visit Provider Nurse Practitioner Family
DX: R10.9 Unspecified abdominal pain (principal); R15.9 Full incontinence of feces
CPT/HCPCS: 82656; 83993

== ENCOUNTER 2023-10-16 13:26 | Outpatient (AMB) | payer OTHER, SELFPAY ==
--- NOTE | 2023-10-16 13:40 | A.OFFVIS_ITS ---
Vital Signs 10/16/23 13:41 Height 5 ft 5 in Weight 173 lb 11.588 oz BMI 28.9 BP 138/84 Blood Pressure Location Rt brachial Position Sitting Pulse 80 Pulse Source Pulse Oximeter Pulse Oximetry (%) 96 Oxygen Delivery Method Room Air Intake Visit Reasons: 5 week follow up Pt N/S last appt Intake Note: Isaac presents in office today for a scheduled FUV. CC; Pt did miss their last appointment (unplanned). Pt reports that overall they have been greatly improved since their last visit. Pt believes that largely their sx may have been circumstantial. Pt has not taken the Rx'd medications as instructed as he did not feel that they were necessary. Pt does have requests regarding dietary suggestion lists. Pt did misplace their last copy. Pt would also like to address possible follow up blood / lab work. 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 Will check vitamin-D B12 and folate levels. Patient will try to avoid dietary triggers and late night snacking. Discussed with patient the importance of controlling his blood sugars as they can contribute to multiple other issues that include gastroparesis, as well as cardiac issues. Patient will start omeprazole in the morning half an hour before breakfast. Avoid dietary triggers and late night snacking. Staying upright for minimum 3 hours after meals discussed with patient. Patient will return in the office in 2 months, sooner on as needed basis. He is agreeable to this plan and verbalizes understanding of instructions. He was given the opportunity to ask questions and all questions answered. ? Thank you for allowing me to participate in his care Orders Orders Carbohydrate Antigen 19-9 08/10/23 D49.0 Vitamin D 25-OH (D2 and D3) 08/10/23 E55.9 Carcinoembryonic Antigen 08/10/23 D49.0 Lipase 08/10/23 R10.9 Transglutaminase Ab IgG 08/10/23 R10.9 Transglutaminase IgA 08/10/23 R10.9 Vitamin B12 and Folate 08/10/23 R19.7 Medications New omeprazole 20 mg PO DAILY 30 caps 3RF K21.9 TODAY'S VISIT Patient is here today for follow-up and to discuss lab results. Patient reports that he has been feeling better. Patient states that he eliminated stress and lots of food, change his diet and stopped drinking alcohol. His symptoms got much better. Lab results discussed with patient. Patient states that he took omeprazole only for 3 days, he has not seen any difference and he stopped. Patient did follow low FODMAP diet. Patient denies any dyspepsia, dysphagia or odynophagia. Denies melena, hematochezia, unintentional weight loss or ribbon like stools. Patient reports that he retired from [employer] today and will be going into [employer]. PFSH Family History Maternal Grandmother Brain neoplasm malignant Mother H/O thyroidectomy Social History Housing: House Alcohol intake: current Alcohol intake frequency: 3 or more drinks per day Alcohol type: hard liquor Patient Tobacco Use Status: Never used Tobacco e-Cigarette/Vaping Use: Former Use service: No Current occupational status: employed Cognitive needs: No Hearing needs: No Vision needs: No Review of Systems Const Denies weight gain and Denies weight loss ENT Reports no additional complaints, Denies dysphagia and Denies odynophagia Card Reports no additional complaints Resp Reports no additional complaints GI Denies abdominal pain, Denies belching, Denies melena, Denies bloating, Denies change in bowel habits, Denies dysphagia, Denies excessive flatus, Denies dysp epsia, Denies heartburn, Denies diarrhea, Denies loose stools, Denies nausea, Denies odynophagia and Denies vomiting Reports no additional complaints Musc Reports no additional complaints Neuro Reports no additional complaints Psych Reports no additional complaints Endo Reports no additional complaints Physical Exam Vital Signs: Last Vital Signs Pulse 80 10/16/23 13:41 BP 138/84 10/16/23 13:41 Pulse Ox 96 10/16/23 13:41 Oxygen Delivery Method Room Air 10/16/23 13:41 BMI result Body Mass Index 28.9 Const General: healthy appearing, no acute distress and well developed Nutritional Appearance: well nourished Orientation/consciousness: patient oriented x3 Resp Effort & Inspection: normal respiratory effort, able to speak in complete sentences, no tracheal deviation and symmetric chest movement Auscultation: clear to auscultation bilaterally Cardio Rate: regular rate GI Inspection: Yes normal to inspection and No distended Palpation (GI): Soft to palpation, not firm, nontender and No hepatosplenomegaly present Auscultation: normal bowel sounds General: Yes no CVA tenderness Back/Spine/Pelvis Back: no CVA tenderness Skin General skin exam: elasticity normal, turgor normal and dry skin Neuro General: patient oriented x3 Psych Appearance: grossly normal Mental Status: mental status grossly normal Results Reviewed Results Reviewed: Laboratory Tests 03/31/23 04/03/23 05/02/23 16:24 10:41 12:00 Ferritin 510 H GGT 133 H Liver GGT 102 H Liver Fibrosis ALT 49 H Liver Fibrosis Stage F0 C-Reactive Protein 0.11 Ceruloplasmin 26 Alpha Fetoprotein 2.5 25-OH Vitamin D Total 36 Folate 14.4 Stool Calprotectin 22 Stool Pancreat Elastase >500 Anti-Mitochondrial Ab NEGATIVE Anti-Smooth Muscle Ab <20 Tiss Transglutamin IgG <1.0 Tiss Transglutamin IgA <1.0 H. pylori Breath Test Negative Hepatitis A IgM Ab Nonreactive Hep Bs Antigen Negative Hep Bs Antibody NONREACTIVE Hep B Core Total Ab Nonreactive Hepatitis C Ab (EIA) Nonreactive HIV 1&2 Ab/P24 Ag 4thGn Nonreactive Assessment & Plan Assessment & Plan (1) Fatty liver: Code(s): K76.0 - Fatty (change of) liver, not elsewhere classified Category: Medical (2) LFT elevation: Code(s): R79.89 - Other specified abnormal findings of blood chemistry Category: Medical (3) Bloating: Code(s): R14.0 - Abdominal distension (gaseous) Category: Medical (4) GERD (gastroesophageal reflux disease): Code(s): K21.9 - Gastro-esophageal reflux disease without esophagitis Qualifiers: Esophagitis presence: esophagitis presence not specified Qualified Code(s): K21.9 - Gastro-esophageal reflux disease without esophagitis (5) Postprandial epigastric pain: Code(s): R10.13 - Epigastric pain Plan Patient reports that he is feeling much better now. Will repeat liver panel, ferritin and iron profile. Will recheck ultrasound with elastography. Liver fibrosis panel staging F0. Patient will follow-up on as needed basis. If liver panel still high and liver elastography increased patient will return in 6 months otherwise as needed. Patient is agreeable to this plan and verbalizes understanding of instructions. He was given opportunity to ask questions and all questions answered. Thank you for allowing me to participate in his care Orders: Orders Ferritin Today R74.8 - Abnormal levels of other serum enzymes Liver Panel Today R74.01 - Elevation of levels of liver transaminase levels IRON PROFILE Today D64.9 - Anemia, unspecified US abdomen gama w elastography Today K76.0 - Fatty (change of) liver, not elsewhere classified Coding Level of Care Code Est Pt Level 4 (46130) Diagnoses Fatty liver K76.0 LFT elevation R79.89 Bloating R14.0 Gastroesophageal reflux disease, unspecified whether esophagitis present K21.9 Esophagitis presence: esophagitis presence not specified Postprandial epigastric pain R10.13 Time Spent (min) 35 Comment 30 minutes spent with patient and additional 15 minutes spent reviewing his records
[2023-10-16 13:41] VITALS: BP 138/84; PULSE 80; O2SAT 96; BMI 28.9
== END 2023-10-16 14:43 | disposition home or self-care (01) ==
PROVIDERS: PCP Internal Medicine; Visit Provider Nurse Practitioner Family
DX: K76.0 Fatty (change of) liver, not elsewhere classified (principal); R79.89 Other specified abnormal findings of blood chemistry; R14.0 Abdominal distension (gaseous); K21.9 Gastro-esophageal reflux disease without esophagitis; R10.13 Epigastric pain
CPT/HCPCS: 99214

== ENCOUNTER 2023-10-16 13:26 | Outpatient (REF) | payer OTHER, SELFPAY ==
[2023-10-16 15:21] LABS: Alanine Aminotransferase 61 U/L (0-40); Albumin Level 4.5 g/dL (3.5-5.0); Alkaline Phosphatase 74 U/L (39-117); Aspartate Amino Transferase 82 U/L (5-37); Bilirubin Direct 0.2 mg/dL (0.0-0.5); Bilirubin Total 0.8 mg/dL (0.0-1.0); Iron 216 mcg/dL (45-160); Percent Iron Saturation 67 % (15-50); Total Iron Binding Capacity 321 mcg/dL (228-428); Total Protein 7.1 g/dL (6.5-8.0); Unsaturated Iron Binding 105 ug/dL
[2023-10-16 15:39] LABS: Ferritin 597 ng/mL (20-250)
== END 2023-10-16 13:27 | disposition home or self-care (01) ==
LOC: HO.LAB 13:26
PROVIDERS: PCP Internal Medicine; Visit Provider Nurse Practitioner Family
DX: R79.89 Other specified abnormal findings of blood chemistry (principal); R74.8 Abnormal levels of other serum enzymes; R74.01 Elevation of levels of liver transaminase levels; D64.9 Anemia, unspecified; K76.0 Fatty (change of) liver, not elsewhere classified; R14.0 Abdominal distension (gaseous); K21.9 Gastro-esophageal reflux disease without esophagitis
CPT/HCPCS: 36415; 80076; 81256; 82728; 83540; 99212

== ENCOUNTER 2024-07-26 08:19 | Outpatient (AMB) | payer OTHER, SELFPAY ==
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
== END 2024-07-26 09:15 | disposition home or self-care (01) ==
LOC: HO.HMCC 08:19
PROVIDERS: PCP Internal Medicine; Visit Provider Internal Medicine
DX: J32.9 Chronic sinusitis, unspecified (principal)

== ENCOUNTER → 2024-07-26 08:19 | Outpatient (BNVA) | payer OTHER, SELFPAY | PROVIDERS: PCP Internal Medicine; Visit Provider Internal Medicine ==

== ENCOUNTER 2024-12-06 15:13 | Outpatient (AMB) | payer OTHER, SELFPAY ==
--- NOTE | 2024-12-06 15:21 | A.OFFPC_ITS ---
Vital Signs 12/06/24 15:22 Height 5 ft 5 in Weight 181 lb BMI 30.1 BP 144/90 H Blood Pressure Location Lt brachial Position Sitting Pulse 83 Pulse Source Pulse Oximeter Pulse Oximetry (%) 98 Intake Visit Reasons: Back pain Allergies No Known Allergies Allergy (Verified 12/06/24 15:22) Medication List - Last Reconciled 12/06/24 by Torsten Flores MD multivitamin 1 tab PO DAILY Tobacco use date assessed: 12/06/24 Dental Screening Dental Screen Date: 12/06/24 Did you have a dental visit in the last 12 months?: Yes Did you have a dental problem in the last 6 months where you did not have access to dental care?: No Was dental information given to patient?: Patient has dentist HPI Back pain HPI Details History The patient is a 29-year-old male presenting with chronic lower back pain and concerns of possible ADHD. Lower Back Pain: - The patient reports experiencing lower back pain since an injury in 2018 during a deadlifting exercise. - at first when it happened ,associated symptoms included episodes of severe pain leading to crying, collapse, or a pinching sensation in the back. - but now after several years the pain i s characterized by a feeling of soreness and worsens without regular stretching, warm-ups, massages, and decompression exercises.. - Recent exacerbation occurred approxima tely five weeks ago while carrying his son, leading to whiplash-like symptoms for three and a half weeks. - Pain occasionally radiates, resulting in limping and stiffness, particularly if not maintaining regular stretching and other physical therapies. - No regular medication use for pain man agement is reported. Possible ADHD: - The patient describes a longstanding h istory of behavior and concentration difficulties, including scatterbrained episodes and delayed task completion. - Symptoms have been particularly noted by close friends, family, and coworkers over several years. - Recent increase in work-related tasks requiring concentration has highlighted these issues. - He reports having tried Adderall infor amado, which resulted in improved focus and task management. - The patient?s boss has expressed sol rns about his scatterbrained behavior and difficulty in work task completion. - He has experienced multiple severe bauer ic attacks over the last few months alongside difficulties with concentration and overthinking leading to sleeplessness. Medical History: - Elevated blood pressure readings noted in past visits in September and currently. - elevated Ferritin and one gene + for H emochromotosis Medications: - The patient is not on any regular medi cations for back pain or other chronic issues. 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 - Exercise: Regular engagement in stretc ange, physical exercises like decompression, and massages. - Nutritional intake: High salt intake i s acknowledged. - Family status: Has a son Problem List - Chronic Lower Back Pain - Possible Attention Deficit Hyperactivi ty Disorder (ADHD) - Elevated Blood Pressure, that need fur ther monitoring - elevated Ferritin level, need repeated labs Diagnostic results - X-ray of the back recommended and pend ing results. - Labs including liver function tests pl anned for evaluation. [facility] Care - Our Behavioral coordinator will magalys t with ADD evaluation and testing. Plan - Order x-ray imaging of the lumbar spin e to assess any structural abnormalities. This is recommended as the first step in evaluation, considering the chronic nature and recent exacerbation of the patient's back pain. - Referral to a specialist for comprehen sive back and spine evaluation due to chronic symptoms and complex mechanisms potentially involved. - Begin evaluation for ADHD with appropr iate psychiatric or psychological testing through referral to a specialist. Diagnosis to guide further management and prescription considerations. - Dietary modification advised, specific ally reduction of salt intake to address elevated blood pressure. Continuous monitoring of blood pressure is recommended before considering pharmacotherapy. - Repeat blood tests for liver enzyme st atus evaluation due to previous elevation. Continue monitoring and compare results with past records. - Schedule a follow-up for a complete ph ysical examination, inclusive of blood pressure re-evaluation and discussion on test results. Review of Systems General: No fever no chills neurological: No headaches no dizziness ear nose throat: No sore throat no hearing difficulty no ear pain cardiovascular: No syncope, no chest pain, no palpitations gastrointestinal: No nausea vomiting or diarrhea endocrine: No polyuria polydipsia no heat intolerance genitourinary: No dysuria skin: No new complaints Physical Exam general: No acute distress HEENT: No acute findings neck: Supple respiratory system: Able to talk in full sentences, no audible wheeze no stridor cardiovascular: S1-S2 RRR, blood pressure 144/90 gastrointestinal: No pain Back : no pain with percussion, full ROM intact without pain, st leg neg extremities: No new findings 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 awake oriented x3 motor sensory intact skin: Normal turgor PFSH Surgical History No pertinent past surgical history Family History Maternal Grandmother Brain neoplasm malignant Mother H/O thyroidectomy Social History Housing: House Alcohol intake: current Alcohol intake frequency: 3 or more drinks per day Alcohol type: hard liquor Patient Tobacco Use Status: Never used Tobacco e-Cigarette/Vaping Use: Former Use service: No Current occupational status: employed Cognitive needs: No Hearing needs: No Vision needs: No Questionnaire PHQ-9 Over the last 2 weeks, how often have you been bothered by any of the following problems? 1. Little interest or pleasure in doing things: several days 2. Feeling down, depressed, or hopeless: several days 3. Trouble falling or staying asleep, or sleeping too much: several days 4. Feeling tired or having little energy: several days 5. Poor appetite or overeating: not at all 6. Feeling bad about yourself - or that you are a failure or have let yourself or your family down: not at all 7. Trouble concentrating on things, such as reading the newspaper or watching television: more than half the days 8. Moving or speaking so slowly that other people could have noticed. Or the opposite - being so fidgety or restless that you have been moving around a lot more than usual: not at all 9. Thoughts that you would be better off or of hurting yourself in some way: not at all Total score: 6 Depression Screening Interpretation: Negative Depression Screening Done: Yes 22953 - PHQ-9 Billing: Yes Source: Developed by Drs. Noah Campbell, Nanci Pollack, Anjum Sam and colleagues, with an educational betsy from [employer]. Thrive Questionnaire Date Thrive assessed: 12/06/24 I am a: Patient What is your living situation today?: I have a steady place to live Within the past 12 months, did the food you bought not last and you didn't have the money to get more?: Never true Within the past 12 months, did you worry whether your food would run out before you got money to buy more?: Never true Do you have trouble paying for medicines?: No Do you have trouble getting transportation to medical appointments?: No Do you have trouble paying your heating and electricity bill?: No Do you have trouble taking care of your child, family member or friend?: No Do you have trouble with day-to-day activities such as bathing, preparing meals, shopping, managing finances, etc.?: No Are you currently unemployed and looking for a job?: No Are you interested in more education?: No Please select the resources that you would like help with: None Currently or been in a relationship where the following occur: No concerns reported THRIVE Score: 0 AUDIT C Alcohol Use Questionnaire (AUDIT-C) 1. How often do you have a drink containing alcohol?: 2-3 times a week 2. How many drinks containing alcohol do you have on a typical day when you are drinking?: 3 or 4 3. How often do you have six or more drinks on one occasion?: Less than monthly Total Score: 5 Score Reviewed/Action Taken: Yes ROMI-7 AMB Questionnaire ROMI-7 Date ROMI - 7 assessed: 12/06/24 Feeling nervous, anxious, or on edge: 2 = More than half the days Not being able to stop or control worryin = More than half the days Worrying too much about different things: 1 = Several days Trouble relaxin = More than half the days Being so restless that it is hard to sit still: 2 = More than half the days Becoming easily annoyed or irritable: 1 = Several days Feeling afraid as if something awful might happen: 1 = Several days Total ROMI-7 score (0-4 normal; 5-9 mild; 10-14 moderate; 15-21 severe): 11 Source: Developed by Drs. Noah Campbell, Nanci Pollack, Anjum Sam and colleagues, with an educational betsy from [employer]. ROMI-7 Assessment Billing ROMI-7 Assessment Tool: ROMI-7 Assessment 30131 Physical exam (Primary Care) Vital Signs: Last Vital Signs Pulse 83 12/06/24 15:22 BP 144/90 H 12/06/24 15:22 Pulse Ox 98 12/06/24 15:22 BMI result Body Mass Index 30.1 Tobacco/Smoking Status: Tobacco use Status Tobacco use date assessed 12/06/24 12/06/24 15:25 Patient Tobacco Use Status Never used Tobacco 12/06/24 15:25 e-Cigarette/Vaping Use Former Use 12/06/24 15:25 PHQ-9: PHQ-9 Score PHQ-9: Total score 6 12/06/24 15:47 Depression Screening Interpretation: Negative Thrive Assessment: Date of Thrive Assessment Date Thrive assessed 12/06/24 12/06/24 15:25 Currently or been in a relationship where the following occur: No concerns reported Coding Level of Care Code Est Pt Level 5 (74001) Diagnoses Elevated blood pressure reading R03.0 Concentration deficit R41.840 Anxiety disorder with panic attacks F41.9 Chronic bilateral low back pain without sciatica M54.50; G89.29 Back pain laterality: bilateral Sciatica presence: without sciatica LFT elevation R79.89 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 Elevated ferritin R79.89 Enlarged liver R16.0 Impaired fasting blood sugar R73.01 Additional Codes ROMI-7 Assessment Billing - ROMI-7 Assessment Tool: ROMI-7 Assessment 78055 ([id number]) PHQ-9 - 56090 - PHQ-9 Billing: Yes ([id number]) Time Spent (min) 40 Comment reviewing chart/labs/gastro notes/face to face/coordination of care Assessment & Plan Assessment & Plan (1) Elevated blood pressure reading: Code(s): R03.0 - Elevated blood-pressure reading, without diagnosis of hypertension Category: Medical (2) Concentration deficit: Code(s): R41.840 - Attention and concentration deficit Category: Medical (3) Anxiety disorder with panic attacks: Code(s): F41.9 - Anxiety disorder, unspecified Category: Medical (4) Chronic lumbar pain: Code(s): M54.50 - Low back pain, unspecified; G89.29 - Other chronic pain Category: Medical Qualifiers: Back pain laterality: bilateral Sciatica presence: without sciatica Qualified Code(s): M54.50 - Low back pain, unspecified; G89.29 - Other chronic pain (5) LFT elevation: Code(s): R79.89 - Other specified abnormal findings of blood chemistry Category: Medical (6) Hemochromatosis associated with compound heterozygous mutation in HFE gene: Code(s): E83.110 - Hereditary hemochromatosis Category: Medical (7) Elevated ferritin: Code(s): R79.89 - Other specified abnormal findings of blood chemistry Category: Medical (8) Enlarged liver: Code(s): R16.0 - Hepatomegaly, not elsewhere classified Category: Medical (9) Impaired fasting blood sugar: Code(s): R73.01 - Impaired fasting glucose Category: Medical Plan History The patient is a 29-year-old male presenting with chronic lower back pain and concerns of possible ADHD. Lower Back Pain: - The patient reports experiencing lower back pain since an injury in 2018 during a deadlifting exercise. - at first when it happened ,associated symptoms included episodes of severe pain leading to crying, collapse, or a pinching sensation in the back. - but now after several years the pain is characterized by a feeling of soreness and worsens without regular stretching, warm-ups, massages, and decompression exercises.. - Recent exacerbation occurred approximately five weeks ago while carrying his son, leading to whiplash-like symptoms for three and a half weeks. - Pain occasionally radiates, resulting in limping and stiffness, particularly if not maintaining regular stretching and other physical therapies. - No regular medication use for pain management is reported. Possible ADHD: - The patient describes a longstanding history of behavior and concentration difficulties, including scatterbrained episodes and delayed task completion. - Symptoms have been particularly noted by close friends, family, and coworkers over several years. - Recent increase in work-related tasks requiring concentration has highlighted these issues. - He reports having tried Adderall informally, which resulted in improved focus and task management. - The patient?s boss has expressed concerns about his scatterbrained behavior an d difficulty in work task completion. - He has experienced multiple severe panic attacks over the last few months alongside difficulties with concentration and overthinking leading to sleeplessness. Medical History: - Elevated blood pressure readings noted in past visits in September and currently. - elevated Ferritin and one gene + for Hemochromotosis Medications: - The patient is not on any regular medications for back pain or other chronic issues. 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 - Exercise: Regular engagement in stretching, physical exercises like decompression, and massages. - Nutritional intake: High salt intake is acknowledged. - Family status: Has a son Problem List - Chronic Lower Back Pain - Possible Attention Deficit Hyperactivity Disorder (ADHD) - Elevated Blood Pressure, that need further monitoring - elevated Ferritin level, need repeated labs, he had US abd in 2022, which showed enlarged liver Diagnostic results - X-ray of the back recommended and pending results. - Labs including liver function tests planned for evaluation. [facility] Care - Our Behavioral coordinator will assist with ADD evaluation and testing. Plan - Order x-ray imaging of the lumbar spine to assess any structural abnormalities. This is recommended as the first step in evaluation, considering the chronic nature and recent exacerbation of the patient's back pain. - Referral to a specialist for comprehensive back and spine evaluation due to chronic symptoms and complex mechanisms potentially involved. - Begin evaluation for ADHD with appropriate psychiatric or psychological testing through referral to a specialist. Diagnosis to guide further management and prescription considerations. - Dietary modification advised, specifically reduction of salt intake to address elevated blood pressure. Continuous monitoring of blood pressure is recommended before considering pharmacotherapy. - Repeat blood tests for liver enzyme status evaluation due to previous elevation. Continue monitoring and compare results with past records. - Schedule a follow-up for a complete physical examination, inclusive of blood pressure re-evaluation and discussion on test results. consultation with gastro last year note reviewed from 09/2023 workup included iron and ferritin level, liver panel repeatition, along with US and elastography, patient was to be seen back in 6 M, but I dont see any more notes Orders: Orders XR lumbar spine 2-3V 12/06/24 G89.29 - Other chronic pain, M54.50 - Low back pain, unspecified Complete Blood Count Auto Diff 12/06/24 E83.110 - Hereditary hemochromatosis, F41.9 - Anxiety disorder, unspecified, G89.29 - Other chronic pain, M54.50 - Low back pain, unspecified, R03.0 - Elevated blood-pressure reading, without diagnosis of hypertension, R41.840 - Attention and concentration deficit, R79.89 - Other specified abnormal findings of blood chemistry Vitamin B12 12/06/24 E83.110 - Hereditary hemochromatosis, F41.9 - Anxiety disorder, unspecified, G89.29 - Other chronic pain, M54.50 - Low back pain, unspecified, R03.0 - Elevated blood-pressure reading, without diagnosis of hy pertension, R41.840 - Attention and concentration deficit, R79.89 - Other specified abnormal findings of blood chemistry LDL Cholesterol Direct 12/06/24 E83.110 - Hereditary hemochromatosis, F41.9 - Anxiety disorder, unspecified, G89.29 - Other chronic pain, M54.50 - Low back pain, unspecified, R03.0 - Elevated blood-pressure reading, without diagnosis of hypertension, R41.840 - Attention and concentration deficit, R79.89 - Other specified abnormal findings of blood chemistry Vitamin D 25-OH (D2 and D3) 12/06/24 E83.110 - Hereditary hemochromatosis, F41.9 - Anxiety disorder, unspecified, G89.29 - Other chronic pain, M54.50 - Low back pain, unspecified, R03.0 - Elevated blood-pressure reading, without diagnosis of hypertension, R41.840 - Attention and concentration deficit, R79.89 - Other specified abnormal findings of blood chemistry TSH reflex Free T4 12/06/24 E83.110 - Hereditary hemochromatosis, F41.9 - Anxiety disorder, unspecified, G89.29 - Other chronic pain, M54.50 - Low back pain, unspecified, R03.0 - Elevated blood-pressure reading, without diagnosis of hypertension, R41.840 - Attention and concentration deficit, R79.89 - Other specified abnormal findings of blood chemistry Ferritin 12/06/24 E83.110 - Hereditary hemochromatosis, F41.9 - Anxiety disorder, unspecified, G89.29 - Other chronic pain, M54.50 - Low back pain, unspecified, R03.0 - Elevated blood-pressure reading, without diagnosis of hypertension, R41.840 - Attention and concentration deficit, R79.89 - Other specified abnormal findings of blood chemistry Comprehensive Met. Panel 12/06/24 E83.110 - Hereditary hemochromatosis, F41.9 - Anxiety disorder, unspecified, G89.29 - Other chronic pain, M54.50 - Low back pain, unspecified, R03.0 - Elevated blood-pressure reading, without diagnosis of hypertension, R41.840 - Attention and concentration deficit, R79.89 - Other sp ecified abnormal findings of blood chemistry
[2024-12-06 15:22] VITALS: BP 144/90; PULSE 83; O2SAT 98; BMI 30.1
== END 2024-12-06 15:53 | disposition home or self-care (01) ==
LOC: HO.HMCC 15:14
PROVIDERS: PCP Internal Medicine; Visit Provider Internal Medicine
DX: R03.0 Elevated blood-pressure reading, without diagnosis of hypertension (principal); R41.840 Attention and concentration deficit; F41.9 Anxiety disorder, unspecified; M54.50 Low back pain, unspecified; G89.29 Other chronic pain; R79.89 Other specified abnormal findings of blood chemistry; E83.110 Hereditary hemochromatosis; R16.0 Hepatomegaly, not elsewhere classified; R73.01 Impaired fasting glucose

== ENCOUNTER → 2024-12-06 15:13 | Outpatient (BNVA) | payer OTHER, SELFPAY | PROVIDERS: PCP Internal Medicine; Visit Provider Internal Medicine | DX: G89.29 Other chronic pain (principal); R03.0 Elevated blood-pressure reading, without diagnosis of hypertension; R41.840 Attention and concentration deficit; F41.9 Anxiety disorder, unspecified; M54.50 Low back pain, unspecified; R79.89 Other specified abnormal findings of blood chemistry; E83.110 Hereditary hemochromatosis; R16.0 Hepatomegaly, not elsewhere classified; R73.01 Impaired fasting glucose | CPT/HCPCS: 96127; 99212 ==

== ENCOUNTER 2024-12-07 11:07 | Outpatient (REF) | payer OTHER, SELFPAY ==
--- NOTE | ~2024-12-07 | XR_ITS ---
EXAMINATION: XR LUMBAR SPINE 2-3 VIEWS HISTORY: M54.50 - Low back pain, unspecified COMPARISON: There are no prior studies for comparison. FINDINGS: AP, lateral, and coned down views of the lumbar spine are submitted. Osseous mineralization is normal. Five nonrib-bearing lumbar vertebral bodies are identified, maintaining normal height and alignment without evidence of fracture or spondylolisthesis. The intervertebral disc spaces are preserved. The posterior elements are intact. The visualized paraspinal soft tissues are unremarkable. XR/XR lumbar spine 2-3V IMPRESSION: Unremarkable examination of the lumbar spine. Electronically signed by: Noah Hatch MD 12/10/2024 09:35 AM EDT
[2024-12-07 12:39] LABS: MANUAL DIFF FLAG NO
[2024-12-07 12:54] LABS: Hematocrit 39.6 % (42.0-52.0); Hemoglobin 14.0 g/dl (14.0-18.0); Imm Gran Abs Auto 0.02 X10*3/uL (0.00-0.03); Imm Gran Pct Auto 0.4 % (0.0-0.4); Lymphocytes Absolute Auto 1.9 X10*3/uL (1.2-4.9); Mean Corpuscular HGB Conc 35.4 g/dl (31.0-36.0); Mean Corpuscular Hemoglobin 31.9 pg (27.0-33.0); Mean Corpuscular Volume 90.2 fL (80.0-98.0); NRBC Abs Auto 0.000 X10*3/uL (0.0-0.012); NRBC Pct Auto 0.0 /100WBC (0.0-0.2); Platelet Count 285 X10*3/uL (160-400); Red Blood Count 4.39 X10*6/uL (4.60-5.80); White Blood Count 5.4 X10*3/uL (4.8-10.8)
[2024-12-07 13:32] LABS: Alanine Aminotransferase 33 U/L (0-40); Albumin Level 4.8 g/dL (3.5-5.0); Alkaline Phosphatase 77 U/L (39-117); Anion Gap 12 (12-20); Aspartate Amino Transferase 29 U/L (5-37); Blood Urea Nitrogen 23 mg/dL (9-16); Calcium 9.6 mg/dL (8.4-10.2); Carbon Dioxide 31 mmol/L (22-29); Chloride 103 mmol/L (96-108); Estimated Glomerular Filt Rate 51; Potassium 4.4 mmol/L (3.3-5.1); Sodium 142 mmol/L (135-145); Total Protein 7.2 g/dL (6.5-8.0)
[2024-12-07 13:47] LABS: Ferritin 432 ng/mL (20-250)
[2024-12-07 13:52] LABS: Vitamin B12 911 pg/mL (200-900)
[2024-12-13 15:23] LABS: Vitamin D 25-OH, D2 <4 ng/mL; Vitamin D 25-OH, D3 50 ng/mL; Vitamin D 25-OH, Total 50 ng/mL (30-100)
== END 2024-12-07 11:08 | disposition home or self-care (01) ==
LOC: HO.HMGCX 11:07
PROVIDERS: PCP Internal Medicine; Visit Provider Internal Medicine
DX: Z13.21 Encounter for screening for nutritional disorder (principal); R79.89 Other specified abnormal findings of blood chemistry; M54.50 Low back pain, unspecified; G89.29 Other chronic pain; E83.110 Hereditary hemochromatosis; R03.0 Elevated blood-pressure reading, without diagnosis of hypertension; R41.840 Attention and concentration deficit; F41.9 Anxiety disorder, unspecified
CPT/HCPCS: 36415; 72100; 80053; 82306; 82607; 82728; 83721; 84443; 85025

== ENCOUNTER → 2024-12-07 11:16 | Outpatient (BNV) | payer OTHER, SELFPAY | PROVIDERS: PCP Internal Medicine; Visit Provider Radiology Diagnostic Radiology | DX: M54.50 Low back pain, unspecified (principal) | CPT/HCPCS: 72100 ==